=== PATIENT | female | born 1945 | race Caucasian/White ===

== ENCOUNTER 2017-02-11 11:33 | Emergency (ER) | payer BC, MEDICARE ==
[~2017-02-11] VITALS: Ht 160 cm; Wt 110.0 kg
[2017-02-11 11:35] VITALS: TEMP 98; Ht 160 cm; Wt 110.0 kg
--- OUTSIDE RECORDS SUMMARY | 2017-02-11 11:37 | XMS REPORT | Referral Summary ---
Author Organization Unknown Address Unknown Phone Unavailable Care Team Providers Care Returned Case Inspector Name Role Phone Berkley Gary Primary Care Physician [phone] Encounter [facility] [id number] Date(s): 12/05/14 - 12/05/14 Via SUSANA Yao, William, Family Medicine [address] [place] [address] PIOTR Sanchez [address] Discharge Diagnosis: Hyperlipidemia Discharge Diagnosis: Diabetes Discharge Diagnosis: Adult-onset obesity Discharge Diagnosis: Chronic gout Discharge Diagnosis: Hypertension Discharge Diagnosis: Diabetes Discharge Diagnosis: Elevated lipids Discharge Diagnosis: Hypertension Discharge Disposition: Home or Self Care Attending Physician: Aubrey Gary MD Admitting Physician: Aubrey Gary MD Vital Signs Most recent to 1 oldest [Reference Range]: Blood Pressure 140/90 mmHg [90-140/60-90 mmHg] (12/05/14 11:11 AM) Problem List Condition Effective Dates Status Health Status Informant Adult-onset Active obesity(Confirmed) Diabetes(Confirmed) Active Chronic Active gout(Confirmed) Hyperlipidemia(Confi Active rmed) Hypertension(Confirm Active ed) Allergies, Adverse Reactions, Alerts No Known Medication Allergies Medications allopurinol 300 mg oral tablet 1 tabs, Oral, Daily, # 30 tabs, 5 Refill(s), Pharmacy: [facility], 1 tabs Oral Daily Start Date: 12/05/14 Status: Ordered atenolol 100 mg oral tablet 1 tabs, Oral, Daily, # 30 tabs, 5 Refill(s), Pharmacy: [facility], 1 tabs Oral Daily Start Date: 12/05/14 Status: Ordered Cozaar 100 mg oral tablet 1 tabs, Oral, Daily, # 30 tabs, 5 Refill(s), Pharmacy: [facility], 1 tabs Oral Daily Start Date: 12/05/14 Status: Ordered Januvia 100 mg oral tablet 0.5 tabs, Oral, Daily, # 15 tabs, 5 Refill(s), Pharmacy: [facility] Start Date: 12/05/14 Status: Ordered metFORMIN 500 mg oral tablet 2 tabs, Oral, BID, # 120 tabs, 5 Refill(s), Pharmacy: [facility], 2 tabs Oral BID Start Date: 12/05/14 Status: Ordered multivitamin 1 tabs, Oral, Daily Start Date: 12/02/14 Status: Ordered simvastatin 20 mg oral tablet 1 tabs, Oral, Bedtime (once a day), # 30 tabs, 5 Refill(s), Pharmacy: [facility], 1 tabs Oral Bedtime (once a day) Start Date: 12/05/14 Status: Ordered triamterene-hydrochlorothiazide 75 mg-50 mg oral tablet 1 tabs, Oral, Daily, # 30 tabs, 5 Refill(s), Pharmacy: [facility] Start Date: 12/05/14 Status: Ordered Results Hematology Most recent to 1 oldest [Reference Range]: WBC [4.8-10.8 K/uL] 10.6 K/uL (12/05/14 11:28 AM) RBC [4.00-5.20 M/uL] 4.61 M/uL (12/05/14 11:28 AM) Hgb [12.0-16.0 13.9 gm/dL gm/dL] (12/05/14 11:28 AM) Hct [37.0-47.0 %] 43.6 % (12/05/14 11:28 AM) MCV [82.0-99.0 fL] 94.6 fL (12/05/14 11:28 AM) MCH [27.0-32.0 pg] 30.2 pg (12/05/14 11:28 AM) MCHC [32.0-36.0 31.9 gm/dL gm/dL] *LOW* (12/05/14 11:28 AM) RDW [11.5-14.5 %] 14.1 % (12/05/14 11:28 AM) Platelet [150-400 184 K/uL K/uL] (12/05/14 11:28 AM) MPV [8.8-14.8 fL] 12.0 fL (12/05/14 11:28 AM) Chemistry Most recent to 1 oldest [Reference Range]: Sodium Lvl [135-144 140 mEq/L mEq/L] (12/05/14 AM) Potassium Lvl 4.8 mEq/L [3.5-5.2 mEq/L] (12/05/14 AM) Chloride [99-111 106 mEq/L mEq/L] (12/05/14 AM) CO2 [22-31 mEq/L] 24 mEq/L (12/05/14 AM) AGAP [3-20] 10 (12/05/14: AM) BUN [10-20 mg/dL] 38 mg/dL *HI* (12/05/14: AM) Glucose Lvl [70-99 120 mg/dL mg/dL] *HI* (12/05/14 AM) Creatinine Lvl 1.06 mg/dL [0.57-1.11 mg/dL] (12/05/14 AM) eGFR [>60 mL/min] 52 mL/min 1 *ABN* (12/05/14 AM) Calcium Lvl 10.3 mg/dL [8.9-10.5 mg/dL] (12/05/14: AM) Albumin Lvl [3.4-4.8 3.9 gm/dL gm/dL] (12/05/14 AM) Total Protein 7.2 gm/dL [6.2-8.1 gm/dL] (12/05/14 AM) Globulin [1.8-4.0 3.3 gm/dL gm/dL] (12/05/14 AM) ALT [0-55 unit/L] 35 unit/L (12/05/14 AM) AST [5-34 unit/L] 30 unit/L (12/05/14 AM) Alk Phos [40-150 121 unit/L unit/L] (12/05/14 AM) Bili Total [0.2-1.2 0.3 mg/dL mg/dL] (12/05/1428 AM) Chol [0-199 mg/dL] 219 mg/dL *HI* (1/16/15 11:28 AM) Trig [0-149 mg/dL] 371 mg/dL *HI* (12/05/14 11:28 AM) HDL [40-84 mg/dL] 50 mg/dL (12/05/14 11:28 AM) LDL [0-130 mg/dL] 95 mg/dL (12/05/14 11:28 AM) VLDL Cholesterol 74 mg/dL [0-28 mg/dL] *HI* (12/05/14 11:28 AM) Cardiac Risk 4.4 [0.0-5.0] (12/05/14 11:28 AM) TSH with Reflex Free 2.15 T4 [0.35-4.94] (12/05/14 11:28 AM) Hgb A1c [4.1-5.6 %] 6.7 % *HI* (12/05/14 11:28 AM) eAvg Glucose 145.6 mg/dL (12/05/14 11:28 AM) 1Result Comment: Multiply eGFR results by 1.21 for race. Urinalysis Most recent to 1 oldest [Reference Range]: UA Color Yellow (12/05/14 11:28 AM) UA Appear Cloudy *ABN* (12/05/14 11:28 AM) UA pH [5.0-8.0] 6.5 (12/05/14 11:28 AM) UA Leuk Est Negative [Negative] (12/05/14 11:28 AM) UA Nitrite Negative [Negative] (12/05/14 11:28 AM) UA Protein Pos 2+ [Negative] *ABN* (12/05/14 11:28 AM) UA Glucose Negative [Negative] (12/05/14 11:28 AM) UA Ketones Negative [Negative] (12/05/14 11:28 AM) UA Urobilinogen 0.2 mg/dL [<1.0 mg/dL] (12/05/14 11:28 AM) UA Bili [Negative] Negative (12/05/14 11:28 AM) UA Blood [Negative] Negative (12/05/14 11:28 AM) UA Spec Grav 1.015 [1.003-1.030] (12/05/14 11:28 AM) Type Clean Catch (12/05/14 11:28 AM) UA WBC [0-4] 0-2 (12/05/14 11:28 AM) UA RBC [0-2] 0-2 (12/05/14 11:28 AM) Epithelial Cells 0-2 (12/05/14 11:28 AM) Immunizations No data available for this section Procedures Procedure Date Related Diagnosis Body Site Collection of venous blood by venipuncture 12/05/1419-Nov-2014 00:38:50<$> Appendectomy Social History Social History Type Response Smoking Status Never smoker Assessment and Plan Extracted from: Title: Office Visit Note Author: Aubrey Gary MD Date: 12/05/14 Assessment/Plan Adult-onset obesity This issue is stable and appropriate refills, lab, and f/u have been discussed. Diet and exercise. Chronic gout This issue is stable and appropriate refills, lab, and f/u have been discussed. Diabetes This issue is stable and appropriate refills, lab, and f/u have been discussed. The patient was notified for the need for regular quarterly f/u of their diabetes. Further any pertinent medication, supplies, etc were refilled. Additionally, they are to have annual eye exams, foot exams, and regular care. Januvia samples given as a courtesy. Ordered: Hemoglobin A1c TSH with Reflex Free T4 Elevated lipids, Hyperlipidemia This issue is stable and appropriate refills, lab, and f/u have been discussed. Ordered: Lipid Panel Hypertension, Hypertension This issue is stable and appropriate refills, lab, and f/u have been discussed. The patient reports their blood pressure has been stable at home and is not having any significant or related problems. There has been no chest pain, chest pressure, soa/tobin. Ordered: CBC Hemogram Comprehensive Metabolic Panel Urinalysis with Culture if Indicated
--- OUTSIDE RECORDS SUMMARY | 2017-02-11 11:37 | XMS REPORT | Continuity of Care Document ---
Author Author [facility] Organization [facility] Address Unknown Phone Unavailable Allergies Medications Problems Procedures Results Encounters ACCT No. Visit Date/Time Discharge Status Pt. Type Provider Facility Loc./Unit Complaint [id number] 01/23/2014 15:55:00 01/23/2014 23 :59:59 CLS Outpatient
--- OUTSIDE RECORDS SUMMARY | 2017-02-11 11:37 | XMS REPORT | Continuity of Care Document ---
Author Author Cookie COYLE, Aubrey REYES Organization Ambulatory Address [address] [place] [address] [place] [address] Phone Care Team Providers Care Oil Burner Journeyman Name Role Phone Aubrey Gary PP Unavailable Payers Payer name Insurance type Covered democrat ID Authorization(s) Unknown Problems Condition Effective Dates (start - stop) Clinical Status Diabetes Mellitus Type 2, Uncomplicated - *Fair Control Hypertension, Unspecified - *Stable Other and unspecified hyperlipidemia - *Chronic Encounter for therapeutic drug monitoring - *Routine Diabetes Mellitus Type 2, Uncomplicated - *Poor control Other and unspecified hyperlipidemia - *Chronic Hypertension, Unspecified - *Chronic Encounter for therapeutic drug monitoring - *Routine Diabetes Mellitus, Adult Onset, Uncontrolled - *Chronic Hypertension, Benign - *Chronic Other and unspecified hyperlipidemia - *Chronic Fatigue / Malaise - *Chronic Chronic kidney disease, Stage III (moderate) - *Chronic Gout, unspecified - *Chronic Diabetic Nephropathy - *Chronic Obesity - *Chronic Family History Family Member Diagnosis Age At Onset Status Father (Unknown) CAD Yes Mother (Unknown) Alive and well (Unknown) Social History Social History Element Description Quantity Unknown Allergies, Adverse Reactions, Alerts Substance Reaction Severity Status Unknown Medications Medication Instructions Dosage Effective Dates (start - stop) Status Januvia 100 mg tablet 1/2 tab po qd - Active Zocor 20 mg tablet Take 1 tablet by mouth every day. - Active Cozaar 100 mg tablet Take 1 tablet by mouth every day. - Active atenolol 100 mg tablet Take 1 tablet by mouth every day. - Active metformin 500 mg tablet Take 2 tablets by mouth twice a day. - Active allopurinol 300 mg tablet Take 1 tablet by mouth every day. - Active Maxzide 75 mg-50 mg tablet Take 1 tablet by mouth every day. - Active multivitamin tablet take 1 Tablet by Oral route every day 0 - Active Immunizations Vaccine Date Status Comments Unknown Results Test Name Date and Time Measure Units Reference Range Abnormal Flag Comments Panel Description: Chemistry Profile Glucose 16:39:00 113 mg/dL 70-99 H BUN 16:39:00 31 mg/dL 10-20 H Creatinine 16:39:00 1.36 mg/dL 0.57-1.11 H Calcium 16:39:00 10.3 mg/dL 8.9-10.5 Sodium 16:39:00 139 mEq/L 135-144 Potassium 16:39:00 4.2 mEq/L 3.5-5.2 Chloride 16:39:00 104 mEq/L 99-111 CO2 16:39:00 26 mEq/L 22-31 Albumin 16:39:00 4.0 g/dL 3.4-4.8 Bilirubin Total 16:39:00 0.3 mg/dL 0.2-1.2 Alkaline Phosphatase 16:39:00 143 U/L 40-150 Protein 16:39:00 7.6 g/dL 6.2-8.1 ALT (SGPT) 16:39:00 26 U/L 0-55 AST (SGOT) 16:39:00 26 U/L 5-34 Anion Gap 16:39:00 9 3-20 Globulin 16:39:00 3.6 g/dL 1.8-4.0 Testing performed at [facility] [address] [facility] [address] Station Worker Dank Boswell MD Panel Description: Chemistry Profile Glucose 16:39:00 113 mg/dL 70-99 H BUN 16:39:00 31 mg/dL 10-20 H Creatinine 16:39:00 1.36 mg/dL 0.57-1.11 H Calcium 16:39:00 10.3 mg/dL 8.9-10.5 Sodium 16:39:00 139 mEq/L 135-144 Potassium 16:39:00 4.2 mEq/L 3.5-5.2 Chloride 16:39:00 104 mEq/L 99-111 CO2 16:39:00 26 mEq/L 22-31 Albumin 16:39:00 4.0 g/dL 3.4-4.8 Bilirubin Total 16:39:00 0.3 mg/dL 0.2-1.2 Alkaline Phosphatase 16:39:00 143 U/L 40-150 Protein 16:39:00 7.6 g/dL 6.2-8.1 ALT (SGPT) 16:39:00 26 U/L 0-55 AST (SGOT) 16:39:00 26 U/L 5-34 Anion Gap 16:39:00 9 3-20 Globulin 16:39:00 3.6 g/dL 1.8-4.0 Testing performed at [facility] [address] [address] Station Worker Dank Boswell MD Panel Description: EGFR-AMS eGFR 16:39:00 39 mL/min >60 A Multiply eGFR results by 1.21 for race.Testing performed at [facility] [address] [address] Station Worker Dank Boswell MD Panel Description: EGFR-AMS eGFR 16:39:00 39 mL/min >60 A Multiply eGFR results by 1.21 for race.Testing performed at [facility] [address] [address] Station Worker Dank Boswell MD Panel Description: Triglycerides-AMS Triglycerides 16:39:00 443 mg/dL 0-149 H LDL and VLDL are invalid with Triglyceride greater than 400.Testing performed at [facility] [address] [address] Station Worker Dank Boswell MD Panel Description: Triglycerides-[facility] Triglycerides 16:39:00 443 mg/dL 0-149 H LDL and VLDL are invalid with Triglyceride greater than 400.Testing performed at [facility] [address] [address] Station Worker Dank Boswell MD Panel Description: LDL Direct Measurement-[facility] LDL Direct 16:39:00 91 mg/dL 0-129 Testing performed at [facility] [address] [address] Station Worker Dank Boswell MD Panel Description: LDL Direct Measurement-[facility] LDL Direct 16:39:00 91 mg/dL 0-129 Testing performed at [facility] [address] [address] Station Worker Dank Boswell MD Panel Description: Hemoglobin M0o-GUG Hemoglobin A1C 16:39:00 7.2 % 4.1-5.6 H Testing performed at [facility] [address] [address] Station Worker Dank Boswell MD Panel Description: Hemoglobin A0y-FIA Hemoglobin A1C 16:39:00 7.2 % 4.1-5.6 H Testing performed at [facility] Reference Lab [address] [place] [address] Station Worker Dank Boswell MD Panel Description: EAG Calculation-AMS Estimated Average Glucose 16:39:00 159.9 mg/dL Testing performed at [facility] [address] [place] [address] Station Worker Dank Boswell MD Panel Description: EAG Calculation-AMS Estimated Average Glucose 16:39:00 159.9 mg/dL Testing performed at [facility] [address] [place] [address] Station Worker Dank Boswell MD Panel Description: Urine Culture/Sensitivity-[facility] Urine Culture 16:39:00 Source: Urine Collected: 01/23/14 16:39 Site: Received : 01/23/14 18:41 Order#: [id number] Culture PRELIM 01/24/14 07:59 Gram negative bacillus being identified 10-30,000 cfu/mlKEY FOR RESULTS: * - NEW RESULT - RESULT WAS MODIFIED AFTER FINAL STATUS SETPerform at [facility] Lab [address] [facility] [address] Station Worker Dank Hopper Description: Urine Culture/Sensitivity-[facility] Urine Culture 16:39:00 Source: Urine Collected: 01/23/14 16:39 Site: Received : 01/23/14 18:41 Order#: [id number] Culture FINAL 01/25/14 06:32 Klebsiella pneumoniae 10-30,000 cfu/ ml K. pneumo. Antibiotic RUFINO INT Ampicillin >=32 R Ampicillin/sulbactam 4 S Cefazolin <=4 S Ceftriaxone <=1 S Ciprofloxacin < =0.25 S Gentamicin <=1 S Nitrofurantoin 64 I Trimethoprim/Sulfa <=20 S ____ S=SUSCEPTIBLE I=INTERMEDIATE R=RESISTANT S-DD=SUSCEPTIBLE, DOSE DEPENDENT KEY FOR RESULTS: * - NEW RESULT - RESULT WAS MODIFIED AFTER FINAL STATUS SETPerform at [facility] [address] [place] [address] Station Worker Dank Boswell MD Panel Description: Urinalysis with Micro-Reflex Culture & Sens if Ind-AMS Appearance 16:39:00 Clear Color 16:39:00 Yellow Glucose, Urine 16:39:00 Negative Negative Ketones 16:39:00 Negative Negative Blood 16:39:00 Negative Negative Protein 16:39:00 Pos 1+ Negative A Nitrites 16:39:00 Negative Negative Bilirubin 16:39:00 Negative Negative Specific [place] 16:39:00 1.013 1.003-1.03 pH 16:39:00 6.0 5.0-8.0 Urobilinogen 16:39:00 0.2 mg/dL <1.0 Leukocyte Esterase 16:39:00 Trace Negative A WBC, Urine 16:39:00 2-5 /HPF 0-4 Epithelial Cells 16:39:00 2-5 /HPF Crystals 16:39:00 Amorphous Urine Mucus 16:39:00 Present Microscop. Exam Perf. 16:39:00 performed Testing performed at [facility] Lab [address] [place] [address] Station Worker Dank Boswell MD Panel Description: Urinalysis with Micro-Reflex Culture & Sens if Ind-AMS Appearance 16:39:00 Clear Color 16:39:00 Yellow Glucose, Urine 16:39:00 Negative Negative Ketones 16:39:00 Negative Negative Blood 16:39:00 Negative Negative Protein 16:39:00 Pos 1+ Negative A Nitrites 16:39:00 Negative Negative Bilirubin 16:39:00 Negative Negative Specific [place] 16:39:00 1.013 1.003-1.03 pH 16:39:00 6.0 5.0-8.0 Urobilinogen 16:39:00 0.2 mg/dL <1.0 Leukocyte Esterase 16:39:00 Trace Negative A WBC, Urine 16:39:00 2-5 /HPF 0-4 Epithelial Cells 16:39:00 2-5 /HPF Crystals 16:39:00 Amorphous Urine Mucus 16:39:00 Present Microscop. Exam Perf. 16:39:00 performed Testing performed at [facility] [address] [address] Station Worker Dank Boswell MD Panel Description: Culture If Indicated With Sensitivity-[facility] Urine Culture Reflexed? 16:39:00 YES Testing performed at [facility] Lab [address] [address] Station Worker Dank Boswell MD Panel Description: Culture If Indicated With Sensitivity-[facility] Urine Culture Reflexed? 16:39:00 YES Testing performed at [facility] [address] [address] Station Worker Dank Boswell MD Vital Signs Date / Time: Height Weight Pulse Rate Blood Pressure Temperature /15:57:00 63.00 in 248.00 lbs 130/86 mm[Hg] 98.7 F Procedures Procedure Date Unknown Encounters Encounter Location Date Patient Visit [facility] Patient Visit [facility] Patient Visit [facility] Advance Directives Directive Effective Date Unknown
--- OUTSIDE RECORDS SUMMARY | 2017-02-11 11:37 | XMS REPORT | Referral Summary ---
Author Author [facility] Organization [facility] Address Unknown Phone Unavailable Care Team Providers Care Wire Communications Engineer Name Role Phone Berkley Gary Primary Care Physician [phone] Encounter VC Date(s): 07/09/15 - 07/09/15 [facility] [address] [place] [id number] Discharge Disposition: 01-Home or Self Care Attending Physician: Aubrey Gary MD Admitting Physician: Aubrey Gary MD Vital Signs Most recent to 1 oldest [Reference Range]: Blood Pressure 120/70 mmHg [90-140/60-90 mmHg] (07/09/15 3:13 PM) Problem List Condition Effective Dates Status Health Status Informant Adult-onset Active obesity(Confirmed) Diabetes(Confirmed) Active Chronic Active gout(Confirmed) Hyperlipidemia(Confi Active rmed) Hypertension(Confirm Active ed) Cancer, Active uterine(Confirmed) Allergies, Adverse Reactions, Alerts No Known Medication Allergies Medications Januvia 100 mg oral tablet See Instructions, TAKE ONE-HALF TABLET BY MOUTH ONCE DAILY, # 45 tabs, 1 Refill( s), Pharmacy: [id number] Start Date: 07/09/15 Status: Ordered metFORMIN 500 mg oral tablet 1,000 mg 2 tabs, Oral, BID, # 360 tabs, 1 Refill(s), Pharmacy: [id number], 2 tabs Oral BID,x90 days Start Date: 07/09/15 Stop Date: 01/05/16 Status: Ordered multivitamin 1 tabs, Oral, Daily Start Date: 12/02/14 Status: Ordered Results Hematology Most recent to 1 oldest [Reference Range]: WBC [4.8-10.8 9.3 10*3/uL 10*3/uL] (07/09/15 3:49 PM) RBC [4.00-5.20 4.13 10*6/uL 10*6/uL] (07/09/15 3:49 PM) Hgb [12.0-16.0 13.0 gm/dL gm/dL] (07/09/15 3:49 PM) Hct [37.0-47.0 %] 38.8 % (07/09/15 3:49 PM) MCV [82.0-99.0 fL] 93.9 fL (07/09/15 3:49 PM) MCH [27.0-32.0 pg] 31.5 pg (07/09/15 3:49 PM) MCHC [32.0-36.0 33.5 gm/dL gm/dL] (07/09/15 3:49 PM) RDW [11.5-14.5 %] 14.0 % (07/09/15 3:49 PM) Platelet [150-400 136 10*3/uL 10*3/uL] *LOW* (07/09/15 3:49 PM) MPV [8.8-14.8 fL] 12.8 fL (07/09/15 3:49 PM) Immature 0.2 % Granulocytes (07/09/15 3:49 PM) [0.0-1.0 %] Neutrophils [51-75 68 % %] (07/09/15 3:49 PM) Lymphocytes [20-46 19 % %] *LOW* (07/09/15 3:49 PM) Monocytes [4-11 %] 8 % (07/09/15 3:49 PM) Eosinophils [0-4 %] 4 % (07/09/15 3:49 PM) Basophils [0-2 %] 0 % (07/09/15 3:49 PM) Neutro Absolute 6.37 10*3 [1.90-7.00 10*3] (07/09/15 3:49 PM) Lymph Absolute 1.79 10*3 [0.80-3.30 10*3] (07/09/15 3:49 PM) [place] Absolute 0.72 10*3 [0.30-1.00 10*3] (07/09/15 3:49 PM) Eos Absolute 0.40 10*3 [0.00-0.50 10*3] (07/09/15 3:49 PM) Baso Absolute 0.04 10*3 [0.00-0.20 10*3] (07/09/15 3:49 PM) Chemistry Most recent to 1 oldest [Reference Range]: Sodium Lvl [135-144 139 mEq/L mEq/L] (07/09/15 3:49 PM) Potassium Lvl 4.0 mEq/L [3.5-5.2 mEq/L] (07/09/15 3:49 PM) Chloride [99-111 103 mEq/L mEq/L] (07/09/15 3:49 PM) CO2 [22-31 mEq/L] 29 mEq/L (07/09/15 3:49 PM) AGAP [3-20] 7 (07/09/15 3:49 PM) BUN [10-20 mg/dL] 42 mg/dL *HI* (07/09/15 3:49 PM) Glucose Lvl [70-99 94 mg/dL mg/dL] (07/09/15 3:49 PM) Creatinine Lvl 0.87 mg/dL [0.57-1.11 mg/dL] (07/09/15 3:49 PM) eGFR [>60 mL/min] >60 mL/min 1 (07/09/15 3:49 PM) Calcium Lvl 10.0 mg/dL [8.9-10.5 mg/dL] (07/09/15 3:49 PM) Albumin Lvl [3.4-4.8 4.0 gm/dL gm/dL] (07/09/15 3:49 PM) Total Protein 6.6 gm/dL [6.2-8.1 gm/dL] (07/09/15 3:49 PM) Globulin [1.8-4.0 2.6 gm/dL gm/dL] (07/09/15 3:49 PM) ALT [0-55 U/L] 18 U/L (07/09/15 3:49 PM) AST [5-34 U/L] 23 U/L (07/09/15 3:49 PM) Alk Phos [40-150 83 U/L U/L] (07/09/15 3:49 PM) Bili Total [0.2-1.2 0.4 mg/dL mg/dL] (07/09/15 3:49 PM) Uric Acid [2.6-6.0 4.1 mg/dL mg/dL] (07/09/15 3:49 PM) Chol [0-199 mg/dL] 124 mg/dL (07/09/15 3:49 PM) Trig [0-149 mg/dL] 145 mg/dL (07/09/15 3:49 PM) HDL [40-84 mg/dL] 37 mg/dL *LOW* (07/09/15 3:49 PM) LDL [0-130 mg/dL] 58 mg/dL (07/09/15 3:49 PM) VLDL Cholesterol 29 mg/dL [0-28 mg/dL] *HI* (07/09/15 3:49 PM) Cardiac Risk 3.4 [0.0-5.0] (07/09/15 3:49 PM) TSH with Reflex Free 1.26 T4 [0.35-4.94] (07/09/15 3:49 PM) Hgb A1c [4.1-5.6 %] 5.8 % *HI* (07/09/15 3:49 PM) eAvg Glucose 119.8 mg/dL (07/09/15 3:49 PM) 1Result Comment: Multiply eGFR results by 1.21 for race. Urinalysis Most recent to 1 oldest [Reference Range]: UA Color Yellow (07/09/15 4:00 PM) UA Appear Clear (07/09/15 4:00 PM) UA pH [5.0-8.0] 5.5 (07/09/15 4:00 PM) UA Leuk Est Pos 1+ [Negative] *ABN* (07/09/15 4:00 PM) UA Nitrite Negative [Negative] (07/09/15 4:00 PM) UA Protein Negative [Negative] (07/09/15 4:00 PM) UA Glucose Negative [Negative] (07/09/15 4:00 PM) UA Ketones Negative [Negative] (07/09/15 4:00 PM) UA Urobilinogen 0.2 mg/dL [<1.0 mg/dL] (07/09/15 4:00 PM) UA Bili [Negative] Negative (07/09/15 4:00 PM) UA Blood [Negative] Negative (07/09/15 4:00 PM) UA Spec Grav 1.009 [1.003-1.030] (07/09/15 4:00 PM) Type Voided (07/09/15 4:00 PM) UA WBC [0-4] 5-10 *ABN* (07/09/15 4:00 PM) UA RBC [0-4] 0-4 (07/09/15 4:00 PM) Epithelial Cells 0-2 (07/09/15 4:00 PM) UA Hyal Cast [0-3] 1-3 (07/09/15 4:00 PM) Microbiology Reports TEST: Urine Culture1 STATUS: Auth (Verified) BODY SITE: SOURCE: Urine COLLECTED DATE/TIME: 07/09/15 4:00 PM Urine Culture Normal urogenital/skin al present Streptococcus agalactiae - (Group B) 10-30,000 cfu/ml Organisms are predictably susceptible to Beta-lactam drugs. ORGANISM:Streptococcus agalactiae (Group B) INTERPRETIVE DATA 1Sterile clean catch urine [email or web address]. [place] cup/benites tube with boric acid Immunizations No data available for this section Procedures Procedure Date Related Diagnosis Body Site Collection of venous blood by venipuncture 07/09/15 Appendectomy Social History Social History Type Response Smoking Status Never smoker Assessment and Plan Extracted from: Title: Ambulatory Patient Education Author: Aubrey Gary MD Date: Family Medicine Diabetes and Foot Care Diabetes may cause you to have problems because of poor blood supply ( circulation) to your feet and legs. This may cause the skin on your feet to become thinner, break easier, and heal more slowly. Your skin may become dry, and the skin may peel and crack. You may also have nerve damage in your legs and feet causing decreased feeling in them. You may not notice minor injuries to your feet that could lead to infections or more serious problems. Taking care of your feet is one of the most important things you can do for yourself. HOME CARE INSTRUCTIONS Wear shoes at all times, even in the house. Do not go barefoot. Bare feet are easily injured. Check your feet daily for blisters, cuts, and redness. If you cannot see the bottom of your feet, use a mirror or ask someone for help. Wash your feet with warm water (do not use hot water) and mild soap. Then pat your feet and the areas between your toes until they are completely dry. Do not soak your feet as this can dry your skin. Apply a moisturizing lotion or petroleum jelly (that does not contain alcohol and is unscented) to the skin on your feet and to dry, brittle toenails. Do not apply lotion between your toes. Trim your toenails straight across. Do not dig under them or around the cuticle. File the edges of your nails with an emery board or nail file. Do not cut corns or calluses or try to remove them with medicine. Wear clean socks or stockings every day. Make sure they are not too tight. Do not wear knee-high stockings since they may decrease blood flow to your legs. Wear shoes that fit properly and have enough cushioning. To break in new shoes, wear them for just a few hours a day. This prevents you from injuring your feet. Always look in your shoes before you put them on to be sure there are no objects inside. Do not cross your legs. This may decrease the blood flow to your feet. If you find a minor scrape, cut, or break in the skin on your feet, keep it and the skin around it clean and dry. These areas may be cleansed with mild soap and water. Do not cleanse the area with peroxide, alcohol, or iodine. When you remove an adhesive bandage, be sure not to damage the skin around it. If you have a wound, look at it several times a day to make sure it is healing. Do not use heating pads or hot water bottles. They may burn your skin. If you have lost feeling in your feet or legs, you may not know it is happening until it is too late. Make sure your health care provider performs a complete foot exam at least annually or more often if you have foot problems. Report any cuts, sores, or bruises to your health care provider immediately. SEEK MEDICAL CARE IF: You have an injury that is not healing. You have cuts or breaks in the skin. You have an ingrown nail. You notice redness on your legs or feet. You feel burning or tingling in your legs or feet. You have pain or cramps in your legs and feet. Your legs or feet are numb. Your feet always feel cold. SEEK IMMEDIATE MEDICAL CARE IF: There is increasing redness, swelling, or pain in or around a wound. There is a red line that goes up your leg. Pus is coming from a wound. You develop a fever or as directed by your health care provider. You notice a bad smell coming from an ulcer or wound. Document Released: 11/03/2001 Document Revised: 07/09/2014 Document Reviewed: Exit[employer] Patient Information 2015 [employer]. This information is not intended to replace advice given to you by your health care provider. Make sure you discuss any questions you have with your health care provider. No follow up information was provided. Extracted from: Title: Office Visit Note Author: Aubrey Gary MD Date: 07/09/15 Assessment/Plan Adult-onset obesity Working on diet and exercise. Needed a note stating no exercise restrictions for gym. Given as a courtesy. Chronic gout This issue is stable and [...] eye exams, foot exams, and regular care. Samples of januvia given as a courtesy. Elevated glucose This issue is stable and appropriate refills, lab, and f/u have been discussed. Ordered: Hemoglobin A1c TSH with Reflex Free T4 Gout This issue is stable and appropriate refills, lab, and f/u have been discussed. Ordered: CBC w/ Differential Uric Acid High cholesterol This issue is stable and appropriate refills, lab, and f/u have been discussed. Ordered: Lipid Panel Hypertension This issue is stable and appropriate refills, lab, and f/u have been discussed. The patient reports their blood pressure has been stable at home and is not having any significant or related problems. There has been no chest pain, chest pressure, soa/tobin. Ordered: Comprehensive Metabolic Panel Urinalysis with Culture if Indicated Orders: metFORMIN, 1,000 mg 2 tabs, Oral, BID, # 360 tabs, 1 Refill(s), Pharmacy: [facility], 2 tabs Oral BID,x90 days simvastatin, 20 mg 1 tabs, Oral, Bedtime (once a day), X 90 days, # 90 tabs, 1 Refill(s), Pharmacy: [id number], 1 tabs Oral Bedtime (once a day), x90 days sitaGLIPtin, See Instructions, TAKE ONE-HALF TABLET BY MOUTH ONCE DAILY, # 45 tabs, 1 Refill(s), Pharmacy: [id number]
--- OUTSIDE RECORDS SUMMARY | 2017-02-11 12:37 | XMS REPORT | Continuity of Care Document ---
Author Author [facility] Organization [facility] Address Unknown Phone Unavailable Allergies Medications Problems Procedures Results Encounters ACCT No. Visit Date/Time Discharge Status Pt. Type Provider Facility Loc./Unit Complaint [id number] 01/23/2014 15:55:00 01/23/2014 23 :59:59 CLS Outpatient
--- NOTE | 2017-02-11 13:18 | NUR ---
PROVIDER DR. MITCHELL IN TRIAGE ROOM WITH PT.
[2017-02-11] MEDS ORDERED: LUTE1CAP5 PO (13:25)
[2017-02-11] MEDS ORDERED: CYAN25002 PO (13:25)
[2017-02-11] MEDS ORDERED: FISH1CAP59 PO (13:26)
[2017-02-11] MEDS ORDERED: MULT-933 PO (13:26)
[2017-02-11] MEDS ORDERED: TRIA-56 PO (13:27)
[2017-02-11] MEDS ORDERED: ALLO300T2 PO (13:28)
[2017-02-11] MEDS ORDERED: ATEN100T PO (13:29)
[2017-02-11] MEDS ORDERED: METF500T4 PO (13:29)
[2017-02-11] MEDS ORDERED: SIMV20TA6 PO (13:29)
[2017-02-11] MEDS ORDERED: LOSA100T44 PO (13:30)
[2017-02-11] MEDS ORDERED: ACET-62 PO (13:31)
[2017-02-11] MEDS ORDERED: SITA25TA5 PO (13:34)
--- NOTE | 2017-02-11 13:39 | ERPDOC ---
Departure Disposition Decision Date: Feb 11, 2017 Disposition Decision Time: 14:47 Disposition: 01 DISCHARGED HOME, SELF-CARE Impression Impression Impression: Primary Impression: Contusion Encounter type: initial encounter Contusion area: hip Laterality: left Qualified Codes: S70.02XA - Contusion of left hip, initial encounter Severity: Mild Condition: Improved Seen By: Physician only Referrals: [facility] 2 Days Patient Instructions: Contusion in Adults (ED) Problems/Meds/Labs Reviewed?: Yes Medications reviewed and manag: Yes Follow up care ordered?: Yes Mental Status: Alert, Oriented Scripts Hydrocodone/Acetaminophen ([place] 5-325 Tablet) 5-325 Tablet 1 TAB PO Q4HR Y for PAIN for 3 Days, #18 TAB 0 Refills Prov: WANDA MITCHELL DO 02/11/17 HPI - General Medical General Chief Complaint: Lower Extremity Injury Stated Complaint: FALL/L LEG PAIN Time Seen by Provider: 12:09 Source: patient Exam Limitations: no limitations HPI - General Medical Initial Comments 61-year-old female presents to the emergency department with a chief complaint of an injury to her hip. Patient noted onset of symptoms 2 days ago when she slipped and fell in the shower landing on the left hip. Patient notes pain with ambulation. Pain improves with rest. Patient denies striking her head, neck pain, or loss of consciousness. Patient does also note pain to the left soni as well. No other complaints or associated symptoms. Patient was at home when her symptoms began. Symptoms have been persistent in nature since onset. Pain is dull. Pain is moderate. There is no radiation of pain. Occurred At: home Onset: Constant Allergies: Coded Allergies: No Known Allergies (Unverified , 02/11/17) Past History Past Medical History Pt denies signifigant H Surgical History Denies Surgeries Family History Family History: Negative Social History Smoking Status: Never smoker Substance Use Type: does not use Alcohol Intake: none Review of Systems Constitutional Constitutional: DENIES: chills, fever Eyes General: DENIES: erythema, exudate Lids/Accessories: DENIES: erythema, swelling Vision: DENIES: acuity, blurring ENMT Ears: DENIES: drainage, erythema Hearing: DENIES: hearing loss Balance: DENIES: ataxia, falling to one side Sinuses: DENIES: congestion, pain Nose: DENIES: nosebleeds, pain Mouth/Throat: DENIES: painful swallowing, sore throat Teeth: DENIES: pain Jaw: DENIES: pain Cardiovascular Cardiac: DENIES: chest pain, dyspnea on exertion Rhythm/Rate: DENIES: irregular beat, palpitations Vascular: DENIES: pedal edema, unilateral swelling Pulmonary Respiratory: DENIES: cough, dyspnea, pleuritic chest pain, sputum GI Upper Abdomen: DENIES: nausea, pain, vomiting Lower Abdomen: DENIES: diarrhea, pain General: DENIES: dysuria, pain Musculoskeletal General: joint pain, tenderness Integumentary Skin: DENIES: itching, rash Neurological General: DENIES: headache, numbness, weakness Psychiatric Psychiatric: DENIES: emotional instability, suicidal ideation/attempt Endocrine Endocrine: DENIES: polydipsia, polyphagia Hematologic/Lymphatic Hematologic/Lymphatic: DENIES: frequent nosebleeds, lymphadenopathy Allergic/Immunological Allergic/Immunoligical: DENIES: allergic reactions, hives Physical Exam General General Nourishment: well nourished, well developed, appears stated age, no acute distress, adult General Body Habitus: well groomed Vitals and Pain First Documented Vital Signs Date Time Temp Pulse Resp B/P Pulse Ox O2 Delivery O2 Flow Rate FiO2 02/11/17 11:35 98.0 64 14 184/81 98 Room Air Weight: Kilograms: 110.000 Height (feet): 5 Height (inches): 3.00 Triage Pain Scale: RN VS reviewed by Provider: Yes Normal Exams: Head: Normocephalic w/o trauma Eyes: Pupils are PERRLA w/ EOMI, No scleral icterus, irritation, or foreign bodies noted ENMT: No facial trauma, nasal exudates, pharyngeal erythema, or exudates are noted Dental: No fractured, loose, or missing teeth noted Neck: Full range of motion, without adenopathy, JVD, bruits or thyromegaly Chest/Resp: Clear all francis, with good airflow, and symmetry bilaterally CV: Regular rate and rhythm, without murmur or gallop, Pulses 2+ all extremities, capillary refill, <2 seconds all ext., no pedal edema noted Abdomen: Bowel sounds positive, soft, non-tender, non-distended, no hepatosplenomegaly, masses or bruits noted Lymphatic: No lymphadenopathy, or lymphedema noted Musculoskeletal: or deformity noted, good range of motion, all extremities Integumentary: No rashes, hives, or bruising noted, hair and nails, without abnormality Neurologic: Patient is alert, and oriented, cranial nerves, motor/sensory/ cerebellar, exams w/o gross deficits, to observation Psychiatric: Patient exhibits, appropriate attention, emotion and affect Neck (brief) Neck: NOT FOUND: tenderness Musculoskeletal (brief) Comments L HIP - diffusely tender to palpation mildly. Skin is intact. Pulses intact. Sensation intact. Capillary refill less than 2. Full range of motion. Gait is normal. No erythema or edema. No other tenderness in the left lower extremity other than the soni. Left soni is mildly tender to palpation anteriorly. Differential Diagnoses Considering: Other (sprain/strain/fracture/dislocation) Progress Results/Orders Orders Procedure Category Date Status Time Pelvis W/2 View Lt Hip RAD 02/11/17 Resulted Tib-Fib Left 2 View RAD 02/11/17 Resulted Hydrocodone/Acetaminophen PHA 02/11/17 Complete ([place] 5/325) 14:30 Medications Current ED Medications Acetaminophen/ Hydrocodone Bitart ([place] 5/325) 1 tab O ONCE PO Last administered on 02/11/17t 14:30; Start 02/11/17 at 14:30; Stop 02/11/17 at 14:31 ; Status DC Progress Progress Imaging is discussed in detail with the patient and questions are answered. Patient is given analgesic pain medication with improvement of symptoms in the emergency Department. Patient declines recommended immobilization in the emergency Department. Patient's imaging is reviewed in detail with orthopedic surgery showroom salesperson who agrees with my interpretation of no fracture or dislocation on the images. Patient is discharged home in improved condition. Patient is to follow up as instructed. Patient is to return to the emergency Department if her condition worsens or changes in any manner. Patient is in agreement with the current plan of management. Prescription for [place] was provided. Xray Xray : Xray: Tibia/Fibula L (negative. Pelvis with left hip: Negative.) WANDA MITCHELL DO Feb 11, 2017 13:39
--- NOTE | 2017-02-11 14:27 | NUR ---
PROVIDER DR MITCHELL IN ROOM TALKING TO PT
[2017-02-11] MEDS ORDERED: HYDROCODONE/APAP 5 mg/325 mg TABLET PO ONE (14:30)
--- NOTE | 2017-02-11 14:30 | NUR ---
MEDICATION NORCO 5MG PO ADMINISTERED FOR PAIN
[2017-02-11] MEDS ORDERED: HYDR-4246 PO (14:50)
[2017-02-11 14:59] VITALS: BP 140/82; PULSE 62; RESP 18; O2SAT 99
--- NOTE | 2017-02-11 14:59 | NUR ---
DISMISSAL DISMISSAL INSTRUCTIONS WITH RX FOR NORCO 5MG PO. NO FURTHER QUESTIONS AT THIS TIME. PT LEFT DEPARTMENT AMBUALTORY, REFUSING WHEELCHAIR
--- NOTE | 2017-02-12 09:26 | DI ---
Indication: ITS.REASON: Fall with LEFT ANTERIOR TIBIAL PAIN PROCEDURE: TIB-FIB LEFT 2 VIEW: Encounter: Initial Comparison: None Findings: There is no acute fracture, dislocation or malalignment identified. Varicose veins noted incidentally. Impression: No acute osseous abnormality. .
--- NOTE | 2017-02-12 10:23 | DI ---
Indication: ITS.REASON: LEFT HIP PAIN PROCEDURE: PELVIS W/2 VIEW LT HIP: Encounter: Initial Comparison: None Findings: There is no acute fracture, dislocation or malalignment identified. Numerous pelvic surgical clips. Impression: No acute osseous abnormality. .
== END 2017-02-11 14:59 | disposition home or self-care (01) ==
LOC: ED 11:33
DX: S70.02XA Contusion of left hip, initial encounter (principal); M79.662 Pain in left lower leg; W18.2XXA Fall in (into) shower or empty bathtub, initial encounter; Y93.E1 Activity, personal bathing and showering; Y92.002 Bathroom of unspecified non-institutional (private) residence as the place of occurrence of the external cause; Y99.8 Other external cause status